=== PATIENT | female | born 1980 | race Native Hawaiian/Other Pacific Islander ===

== ENCOUNTER 2024-08-28 07:36 | Outpatient (AMB) | payer OTHER, SELFPAY ==
--- OUTSIDE RECORDS SUMMARY | 2024-02-02 05:30 | XMS_ITS ---
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 This section includes the names of all active insurance providers for the patient. Insurance Provider Type of Coverage Plan Name Start of Policy Coverage End of Policy Coverage Group Number Member ID Insurance Provider's Telephone Number Policy Spears's Name Patient's Relationship to Policy Spears ANTHEM BCBS [place] FEDERAL PREFERRED PROVIDER ORGANIZAT ION (PPO) BASIC FAMIL Y Aug 17, 2008 [id number] [phone] MAC CURRIE PATIENT ANTHEM BCBS FEP PREFERRED PROVIDER ORGANIZAT ION (PPO) FEP BASIC FAMIL Y Aug 17, 2008 [id number] [phone] MAC CURRIE PATIENT [place] PREFERRED PROVIDER ORGANIZAT ION (PPO) FEP BASIC FAM Aug 17, 2008 [id number] [phone] MAC CURRIE PATIENT AN[place]M [place] PREFERRED PROVIDER ORGANIZAT ION (PPO) FEP BASIC FAM Aug 17, 2008 [id number] [phone] MAC CURRIE PATIENT [place] PREFERRED PROVIDER ORGANIZAT ION (PPO) FEP BASIC FAM Aug 17, 2008 [id number] [phone] MAC CURRI[place] PATIENT [place] PREFERRED PROVIDER ORGANIZAT ION (PPO) FEP BASIC FAM Aug 17, 2008 [id number] [phone] MAC CURRIE PATIENT [place]BS [place] F[place] PREFERRED PROVIDER ORGANIZAT ION (PPO) BASIC FAMIL Y Aug 17, 2008 [id number] [phone] MAC CURRIE PATIENT [place] PREFERRED PROVIDER ORGANIZAT ION (PPO) BASIC FAMIL Y Aug 17, 2008 [id number] MAC CURRIE PATIENT [place] F[place] DENTAL DENTAL INSURANCE BASIC Aug 17, 2008 DENTAL [id number] MAC CURRIE PATIENT [place] FEDERAL PREFERRED PROVIDER ORGANIZAT ION (PPO) BASIC FAMIL Y Aug 17, 2008 [id number] [phone] MAC CURRIE PATIENT [place] FEP ([id number]) PRESCRIPT ION FEPRX Aug 17, 2008 [id number] [phone] MAC CURRIE PATIENT [place] FEP BCBS PRESCRIPT ION CAREM ARK FEPRX PLAN Feb 27, 2010 [id number] MAC CURRIE PATIENT [place] FEPRX PLAN PRESCRIPT ION CAREM ARK FEPRX Feb 27, 2010 [id number] MAC CURRIE PATIENT [place]-F EP BCBS PRESCRIPT ION BCBS FEP PLAN Feb 27, 2010 [id number] MAC CURRIE PATIENT CAR[place]ARK-F EP BCBS PRESCRIPT ION FEP CAREM ARK Feb 27, 2010 [id number] MAC CURRIE PATIENT [place]-F EP BCBS PRESCRIPT ION BCBS FEP Aug 17, 2008 [id number] MAC CURRIE PATIENT Selected Encounter This section includes the information on record at [place] for the Encounter. Date/Time Encounter Type Encounter Description Reason Provider Source Feb 02, 2024 09:30 AM MTMS BY PHARM EST 15 MIN CLINICAL PHARMACY ICD-10-CM E66.9 Obesity, unspecified GDULA,MIKE A IHE Encounter Template Text not used by [place] Assessments - Encounter Diagnoses This section includes the primary and secondary diagnoses documented for the Encounter. Date/Time Primary/Secondary Diagnosis Diagnosis Name Provider Source Feb 02, 2024 09:28 AM PRIMARY Obesity, unspecified GDULA,MIKE A [facility] [place] [facility] Plan of Treatment: Future Appointments (+ 6 months) and Future Tests (+/- 45 days) The Plan of Treatment section includes future care activities for the patient from all [place] [facility]. This section includes future appointments and future orders which are active, pending or scheduled. Future Appointments This section includes appointments that were scheduled to occur 6 months from the date of the Encounter, up to a maximum of 20 appointments. The data comes from all [place] treatment facilities. Appointment Date/Time Appointment Type Appointme nt Facility Name Feb 07, 2024 07:30 AM AMBULATORY - REHAB MEDICIN E [facility] [place] [facility] Feb 15, 2024 08:00 AM AMBULATORY - MEDICINE [place] [facility] [place] [facility] Feb 16, 2024 09:00 AM AMBULATORY - MEDICINE [facility] [place] [facility] Mar 06, 2024 02:30 PM AMBULATORY - MEDICINE [facility] [place] [facility] Mar 14, 2024 09:00 AM AMBULATORY - PSYCHIATRY [facility] [place] [facility] Mar 28, 2024 09:30 AM AMBULATORY - MEDICINE [place] [facility] [place] [facility] Apr 09, 2024 09:00 AM AMBULATORY - MEDICINE [facility] [place] [facility] May 03, 2024 09:30 AM AMBULATORY - MEDICINE [facility] [place] [facility] May 13, 2024 10:00 AM AMBULATORY - PSYCHIATRY [facility] [place] [facility] May 14, 2024 01:00 PM AMBULATORY - NEUROLOGY [facility] [place] [facility] June 28, 2024 08:00 AM AMBULATORY - MEDICINE [facility] [place] [facility] July 08, 2024 10:00 AM AMBULATORY - PSYCHIATRY [facility] [place] [facility] Jul 30, 2024 12:30 PM [facility] Jul 30, 2024 12:30 PM AMBULATORY - NEUROLOGY [facility] Active, Pending, and Scheduled Orders This section includes a listing of several types of active, pending, and scheduled orders, including clinic medications orders, diagnostic test orders, procedure orders and consult orders; where the start date of the order is 45 days before the date of the Encounter or 45 days after the date of theEncounter. The data comes from all [place] treatment facilities. Test Date/Time Test Type Test Details Facility Name Jan 22, 2024 03:40 PM Consult Order [facility] S[facility]EN[facility] Cons Ux Manager's Choice [facility] Social History: Smoking Status (Most current) and Tobacco Use (All prior to encounter date) This section includes the most current, and the historical, smoking and tobacco- related health factors from the [place] facility where the Encounter took place. Current Smoking Status This section includes the most current smoking, or tobacco-related health factor, from the [place] facility where the Encounter took place. Date/Time Current Smoking Status Comment [facility] Jan 19, 2024 08:00 AM VA-TOBACCO NEVER U SED CIGARETTES [facility] Tobacco Use History This section includes a history of the smoking, or tobacco-related health factors, that were collected on or before the date of the Encounter. The data comes from the [place] facility where the Encounter took place. Date/Time Smoking Status/Tobac co Use Comment Facility Jan 19, 2024 08:00 AM VA-TOBACCO NEVER USED OTHER TYPE [facility] [place] [facility] Oct 10, 2022 10:00 AM VA-TOBACCO FORMER USER [facility] [place] [facility] Oct 10, 2022 10:00 AM VA-TOBACCO QUIT < 1 YEAR [facility] [place] [facility] Sep 27, 2021 09:00 AM VA-TOBACCO USE > 15 LESS THAN 30 YEARS [facility] [place] [facility] Sep 27, 2021 09:00 AM VA-TOBACCO [facility] ADVICE [facility] Sep 27, 2021 09:00 AM VA-TOBACCO USE 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 HELPER NO [facility] Sep 27, 2021 09:00 AM VA-TOBACCO USE MED NO [facility] [place] [facility] Sep 27, 2021 09:00 AM VA-TOBACCO USE WI 30 MIN OF WAKEUP [facility] [place] [facility] Sep 27, 2021 09:00 AM VA-TOBACCO USER EVERY DAY [facility] [place] [facility] Oct 26, 2020 08:30 AM VA-TOBACCO USE > 15 LESS THAN 30 YEARS [facility] [place] [facility] Oct 26, 2020 08:30 AM VA-TOBACCO USE ADVICE [facility] [place] [facility] Oct 26, 2020 08:30 AM VA-TOBACCO USE TINNER HELPER NO [facility] [place] [facility] Oct 26, 2020 08:30 AM VA-TOBACCO USE MED NO [facility] [place] [facility] Oct 26, 2020 08:30 AM VA-TOBACCO USE WI 30 MIN OF WAKEUP [place] [facility] [place] [facility] Oct 26, 2020 08:30 AM VA-TOBACCO USER EVERY DAY [facility] [place] [facility] July 02, 2019 10:44 AM VA-TOBACCO USE > 15 LESS THAN 30 YEARS [facility] [place] [facility] July 02, 2019 10:44 AM VA-TOBACCO USE ADVICE [facility] [place] [facility] July 02, 2019 10:44 AM VA-TOBACCO USE TINNER HELPER NO [facility] [place] [facility] July 02, 2019 10:44 AM VA-TOBACCO USE MED NO [facility] [place] [facility] July 02, 2019 10:44 AM VA-TOBACCO USE WI 30 MIN OF WAKEUP [facility] [place] [facility] July 02, 2019 10:44 AM VA-TOBACCO USER EVERY DAY [facility] [place] [facility] Mar 23, 2017 08:38 AM CURRENT SMOKER [facility] [place] [facility] Mar 23, 2017 08:38 AM V1-PT DECLINES REF TO TOBACCO CESS PRGM [facility] [place] [facility] Mar 23, 2017 08:38 AM V1-PT THINKING ABOUT QUIT TOBACCO USE [facility] [place] [facility] Mar 23, 2017 08:38 AM V1-QUIT TOBACCO USE > 1 YEAR AGO [facility] [place] [facility] Aug 11, 2015 05:03 PM V1-PT DECLINES REF TO TOBACCO CESS [facility]GM [facility] Aug 11, 2015 05:03 PM V1-PT DECLINES TOBACCO CESSATION MEDS [facility] Aug 11, 2015 05:03 PM V1-PT READY TO QUIT TOBACCO USE [facility] Jun 15, 2013 09:56 AM QUIT TOBACCO USE 1-7 YEARS AGO [facility] May 08, 2013 03:19 PM QUIT TOBACCO USE 1-7 YEARS AGO [facility] May 03, 2011 02:06 PM QUIT TOBACCO USE 1-7 YEARS AGO [facility] Nov 15, 2010 11:37 AM QUIT TOBACCO USE IN PAST YEAR [facility] Jan 12, 2010 10:48 AM QUIT TOBACCO USE 1-7 YEARS AGO Quit 09/30/09 [facility] Dec 04, 2008 03:06 PM V1-PT DECLINES REF TO TOBACCO CESS PRGM [facility] Dec 04, 2008 03:06 PM V1-PT READY TO QUIT TOBACCO USE [facility]N [facility] Dec 04, 2008 03:06 PM V1-TOBACCO CESS MEDS NOT PRESCRIBED we are discussing patch vs chantix [facility] Jun 24, 2008 06:25 PM QUIT TOBACCO USE IN PAST YEAR [facility] Dec 27, 2007 09:52 AM V1-PT DECLINES REF TO TOBACCO CESS PRGM [facility] Dec 27, 2007 09:52 AM V1-PT THINKING ABOUT QUIT TOBACCO USE [facility] Dec 27, 2007 08:56 AM CURRENT SMOKER 1/2 PPD [facility] Nov 15, 2007 09:19 AM CURRENT SMOKER She smokes one half pack a day. [facility] Advance Directives: All historical and current Section Date Range: From patient's date of to the date document was created. This section includes ALL of a patient's completed or amended [place] Advance and Rescinded Directives. The entries below indicate that a directive exists for the patient, but an actual copy is not included with this document. The data comes from all [place] facilities. Date Advance Directives Provider Source Apr 07, 2021 ADVANCE DIRECTIVE MARLIN HOPKINS ELLYN YEBOAH [facility] Encounter Notes: All associated encounter notes This section contains the clinical notes associated to the Encounter. Date/Time Encounter Note(s) Provider Source Feb 02, 2024 09:00 AM PHARMACY OUTPATIEN T NOTE: LOCAL TITLE: PHARMACY CLINIC NOTE STANDARD TITLE: PHARMACY OUTPATIENT NOTE DATE OF NOTE: FEB 02, 2024@09:00 ENTRY DATE: FEB 02, 2024@09:00:16 AUTHOR: MIKE STEVENSON COSIGNER: URGENCY: STATUS: COMPLETED Patient referred by Ferdinand Tarango for consideration of weight management medications. Pt was last seen in office on 12/27/23 in which semaglutide 2.4mg once weekly was continued. Today, pt presents in office. She states she is doing well. Steadily losing weight. Denies any ADRS to the medication. She denies any issues with her appetite. She has been execising and continuing with the MOVE! program. She is happy with her sucess thus far. 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 ([facility] [id number]) L20.9 Atopic dermatitis ([facility] [id number]) E78.5 Hyperlipidemia ([facility] [id number]) Z80.3 Family history of breast cancer ([facility] [id number]) 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 ([facility] [id number]) G54.0 Thoracic outlet syndrome ([facility] [id number]) 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 ([facility] [id number]) F31.81 Bipolar disorder ([facility] 81943046) M27.8 Abnormal jaw movement ([facility] 51417719) F51.05 Insomnia ([facility] [id number]) - Insomnia, unspecified (ICD-10-CM F51.05) M54.81 Occipital neuralgia ([facility] 90587570) G43.009 Migraine without aura ([facility] 93240003) G44.221 Tension-type headache ([facility] [id number]) Z63.79 Stress at home ([facility] [id number]) V61.10 Counseling for marital and partner problems, unspecified (ICD-9-CM V61.10) 780.8 Hyperhidrosis (ICD-9-CM 780.8) 620.2 Other and unspecified ovarian cyst (ICD-9-CM 620.2) V25.9 Contraceptive management (ICD-9-CM V25.9) 789.09 Abdominal Pain of other specified site (ICD-9-CM 789.09) V16.41 Family History of Malignant Neoplasm of Ovary (ICD-9-CM V16.41) F17.210 Tobacco dependence, continuous ([facility] 154586117) M54.5 Low back pain ([facility] 617848556) F33.1 Major depression ([facility] [id number]) F43.12 Chronic post-traumatic stress disorder (MST) ([facility] [id number]) R69. Admits alcohol use ([facility] [id number]) ALLERGIES/ADRs: ARIPIPRAZOLE, CYCLOBENZAPRINE, GABAPENTIN Active Outpatient Medications (including Supplies): Issue Date Status Last Fill Active Outpatient Medications Refills Expiration 1) ASPIRIN 81MG EC TAB Qty: 120 for 90 ACTIVE Issu:09-19-22 days Sig: TAKE ONE TABLET BY MOUTH Refills: 2 Last:12-16-22 ONCE DAILY FOR COLON CANCER Expr:09-20-23 PROPHYLAXIS 2) ATORVASTATIN CALCIUM 80MG TAB Qty: 45 ACTIVE (S) Issu:09-19-22 for 90 days Sig: TAKE ONE-HALF TABLET Refills: 0 Last:06-08-23 BY MOUTH ONCE DAILY FOR CHOLESTEROL Expr:09-20-23 3) BUPROPION HCL 100MG 12HR SA TAB Qty: 30 ACTIVE Issu:07-19-22 for 30 days Sig: TAKE ONE TABLET BY Refills: 0 Last:09-07-22 MOUTH EVERY MORNING AFTER BREAKFAST Expr:07-20-23 FOR MOOD/SMOKING CESSATION 4) BUSPIRONE HCL 15MG TAB Qty: 60 for 30 ACTIVE Issu:04-07-23 days Sig: TAKE ONE TABLET BY MOUTH Refills: 1 Last:05-04-23 TWICE DAILY FOR ANXIETY Expr:04-07-24 5) CALCIUM 200MG (CA CITRATE-950MG) TAB ACTIVE Issu:09-19-22 Qty: 400 for 90 days Sig: TAKE TWO Refills: 3 Last:11-23-22 TABLETS BY MOUTH TWICE DAILY Expr:09-20-23 6) CALCIUM 500MG/VITAMIN D 200 UNT TAB ACTIVE Issu:01-20-23 Qty: 60 for 90 days Sig: TAKE 1 Refills: 2 Last:04-10-23 TABLET BY MOUTH ONCE DAILY Expr:01-21-24 7) CHOLECALCIF 25MCG (D3-1,000UNIT) TAB ACTIVE Issu:09-19-22 Qty: 90 for 90 days Sig: TAKE ONE Refills: 3 Last:09-19-22 TABLET BY MOUTH ONCE DAILY FOR VITAMIN Expr:09-20-23 SUPPLEMENTATION 8) COLON ELECTROLYTE LAVAGE PWD FOR SOLN ACTIVE Issu:04-18-23 Qty: 1 for 1 days Sig: TAKE CONTENTS Refills: 0 Last:04-25-23 OF BOTTLE BY MOUTH ONCE DISSOLVE Expr:05-18-23 CONTENTS BEFORE DRINKING. START AT 5PM THE NIGHT BEFORE THE PROCEDURE. TAKE HALF THE PREP, TAKE THE OTHER HALF 6 HOUR BEFORE THE PROCEDURE 9) OMEPRAZOLE 20MG EC CAP Qty: 90 for 90 ACTIVE Issu:05-06-23 days Sig: TAKE ONE CAPSULE BY MOUTH Refills: 3 Last:05-08-23 EVERY MORNING 30 MINUTES BEFORE Expr:05-06-24 BREAKFAST FOR GASTROESOPHAGEAL REFLUX DISEASE 10) OXYBUTYNIN CHLORIDE 5MG TAB Qty: 90 for ACTIVE Issu:05-26-22 90 days Sig: TAKE ONE-HALF TABLET BY Refills: 0 Last:05-04-23 MOUTH TWICE DAILY FOR BLADDER Expr:05-27-23 11) TRIAMCINOLONE ACETONIDE 0.5% CREAM Qty: ACTIVE Issu:07-15-22 30 for 30 days Sig: APPLY A SMALL Refills: 2 Last:12-18-22 AMOUNT TOPICALLY TWICE DAILY NEEDED Expr:07-16-23 FOR ATOPIC DERMATITIS TO HANDS 12) SEMAGLUTIDE 1 MG SUBCUT ONCE WEEKLY Start Date Active Non-VA Medications Refills Expiration 1) Non-VA [id number] OME ACTIVE 65MG CAP Si CAPSULES BY MOUTH NEEDED 2) Non-VA CALCIUM 500MG (CA CARB-1.25GM) ACTIVE TAB SiMG BY MOUTH TWICE DAILY 13 Total Medications PERTINENT LABS: SERUM Jan 20 Aug 11 Reference 2022 2022 10:21 13:37 Units Ranges -- CHOL 144 231 H mg/dL <7 - 199 TRIG 247 H 622 H mg/dL 0 - 150 HDL 42 38 L mg/dL 40 - 60 LDL-d 118 mg/dL <10 - 120 LDL 53 Reflex to dLDL mg/dL0 - 129 CHO/HDL 3.4 6.1 Comments: e l SERUM Jan 20 Jan 20 Reference 2022 2022 10:21 10:21 Units Ranges -- GLUCOSE 73 mg/dL 65 - 100 BUN 12 mg/dL 7 - 25 CREATININE 0.87 mg/dL .5 - 1.4 eGFR(IDMS) Ref: >=60 CREAT mg/dL .5 - 1.5 eGFR See Eval Ref: See Eval Sodium 142 mmol/L 135 - 145 K+/Pot 4.4 mmol/L 3.5 - 5 CL 106 mmol/L 100 - 110 CO2 27 mEq/L 20 - 30 CA mg/dL 8.5 - 10.2 UricAci mg/dL 2.6 - 6 NH3/Amm PO4 mg/dL 2.5 - 5 T. PROT 7.6 g/dL 6 - 8.3 ALBUMIN 4.3 g/dL 3.5 - 5 T BILI 0.7 mg/dL .2 - 1.2 D. BILI mg/dL 0 - .5 AST 21 U/L 5 - 34 ALT 29 U/L <6 - 55 GGT U/L 8 - 35 ALK CHARLIE 71 U/L 40 - 150 AMYLASE U/L 25 - 125 MAG mg/dL 1.6 - 2.6 ACETONE Ref: Neg T3 Total 121.34 ng/dL 35 - 193 == Assessment: Pt is tolerating medication w/o significant ADRS and has reach goal of 5% weightloss. Plan: Continue current Counseled on ways to increase exercise and add to daily lifestyle. Pt congratulated on success thus far and encouraged to continue. Medication Management: Continue: Semaglutide 2.4 mg once weekly - Counseled on spreading nutrtion throughout the day and increasing protein - Recommended increases fruits/veggies and protein - Pt to weight herself at home. - Pt to contact [facility] with ADRS EDUCATION -A shared decision-making approach was used in the development of this plan, involving the , clinician, and any caregivers present. The was provided the opportunity express questions or concerns, and the plan was adjusted as needed to address these concerns. -Reviewed with any new medications, changes to the medication list, education, and plan from today's visit. Patient (and/or caregiver) verbalized understanding of the plan, including possible known risks and benefits, and had no additional questions. Time spent: 15 mins RTC: 05/04/23 @0930 FTF PBM PharmD Pharmacotherapy Rem V12: PHARMACIST INTERVENTIONS: OBESITY/WEIGHT MANAGEMENT Medication monitoring, no dosage change required, continue to monitor and assess Medication reconciliation (changes to active VA and non-VA medication lists to reconcile differences) No changes to medication lists made (medication review completed, no discrepancies identified) /raulito/ MIKE STEVENSON PHARMD,BCPS CLINICAL PHARMACY PRACTITIONER Signed: 02/02/2024 09:28 MIKE STEVENSON [facility] [place] [facility]
--- NOTE | 2024-08-28 07:51 | A.OFFVIS_ITS ---
Intake Visit Reasons: Recurent uti/ Second opinion Intake Note: New Patient presents for initial visit for recurrent uti Urology Medications: Oxybutynin Blood Thinner: aspirin PVR: 0ml's Autocutter Required: No Accompanied by: Self / Same As Patient Allergies aripiprazole Allergy (Verified 08/28/24 08:44) Unknown cyclobenzaprine Allergy (Verified 08/28/24 08:44) Unknown gabapentin Allergy (Verified 08/28/24 08:44) Unknown Medication List - Last Reconciled 08/28/24 by MARINA Valdez- aspirin 81 mg PO DAILY eszopiclone 1 mg PO BEDTIME hydroxyzine HCl 25 mg PO BEDTIME oxybutynin chloride 5 mg PO DAILY semaglutide (weight loss) (Wegovy) mg subcut topiramate 100 mg PO DAILY ubrogepant (Ubrelvy) mg PO PRN HPI Comments Details: Monisha is a very pleasant 44-year-old female patient of Dr. Stewart. She has a past medical history of PTSD, coagulation defects, occipital neuralgia, obesity, nicotine dependence, migraines, major depression, insomnia, hyperlipidemia, family history of malignant neoplasm of breast, chronic tension headaches, bipolar 2 disorder, atopic dermatitis, and low-back pain. She presents to the office today as a 2nd opinion for ongoing lower urinary tract symptoms she has been experiencing. In discussion with the patient today she discusses a longstanding history of urinary issues from [id number]. However feels symptoms improved and then shortly after her hysterectomy in 2021 she started experiencing lower urinary tract symptoms again. She discusses following up with [facility] and being prescribed trospium and low-dose Macrobid however has not found this helpful. She reports lower urinary tract symptoms of urinary urgency, urinary frequency, and dysuria. She also reports episodes of mixed urinary incontinence. She discusses being on oxybutynin for her hot flashes. She is adamant that her news copy editor and breast specialist does not want her on any form of hormone replacement as we did discussed topical estrogen to urethra 3 times per week for preventative of recurrent urinary tract infections. In office urinalysis results reviewed with the patient today. PVR 0 mL. We did discussed further treatment options of lower urinary tract symptoms patient is experiencing as well as further treatment options and risks and benefits of these treatment options. She discusses her reluctancy to taking medications. All the patient's were answered. She otherwise offers no other issues or concerns at this time. History of Present Illness The patient is a 44-year-old female presenting with urinary incontinence, overactive bladder, and recurrent urinary tract infections. The urinary issues began before her hysterectomy, which was performed in 2021, and were initially experienced during her service between 1998 and 2007. Post-hysterectomy, the symptoms re-emerged, and she was advised to consult urology. The patient reports experiencing symptoms of urinary tract infections, such as frequent urination and discomfort, but tests often return negative for infection. She has been prescribed nitrofurantoin for UTI prevention however has not been taking this medication. 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 She has been taking oxybutynin for hot flashes due to the inability to use hormone replacement therapy. Plan The plan includes considering the use of topical estrogen cream as a first-line therapy for recurrent urinary tract infections, especially given the patient's history of hysterectomy and the contraindication for systemic hormone replacement therapy. The patient is advised to hold off on taking oxybutynin and other overactive bladder medications 7 to 10 days before the urodynamic test to ensure accurate results. An ultrasound of the kidneys and bladder is also ordered to further evaluate the urinary symptoms. The patient is encouraged to discuss the potential use of topical estrogen with her news copy editor and breast specialist. Patient was informed and verbally consented to the use of an ambient scribe for clinic note documentation during this visit. Discussion Notes During the discussion, I explained the potential benefits of using topical estrogen cream for managing recurrent urinary tract infections, particularly in the context of her hysterectomy and inability to use systemic hormone replacement therapy due to antithrombin III deficiency. We discussed the urodynamic testing procedure, which will help determine potential treatment options, and the importance of holding off on certain medications prior to the test. 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 Family history of malignant neoplasm of breast Counseling for marital and partner problems, unspecified Contraceptive management Chronic tension type headache Brachial plexus disorders Bipolar II disorder Atopic dermatitis Admits to alcohol use Abdominal pain Review of Systems Const All systems reviewed & are unremarkable except as noted in HPI and below Physical Exam Const General: cooperative, healthy appearing, comfortable, no acute distress, well developed, alert and awake Orientation/consciousness: patient oriented x3 Limitations: no limitations HEENT Head: Yes normal to inspection, Yes normocephalic and Yes atraumatic Ears: hearing grossly normal bilaterally Eyes General: appearance normal, both eyes and all related structures Neck Neck: Yes normal visual inspection and Yes trachea midline Chest Chest palpation & inspection: normal inspection of the chest Resp Effort & Inspection: normal respiratory effort and able to speak in complete sentences Cardio Rate: regular rate GI Inspection: Yes normal to inspection General: Yes no CVA tenderness Back/Spine/Pelvis Back: no CVA tenderness Skin General skin exam: no rashes or lesions noted Neuro General: patient oriented x3 Extrem General: Yes normal to inspection Psych Appearance: grossly normal and well kempt Mental Status: mental status grossly normal Speech and movement: Normal speech and movement present and Clear speech present Affect: normal affect Attitude: cooperative Thought process: Normal thought process present Thought content: Normal thought content present Insight: Fair insight present (Psych) Judgement: Fair judgement present (Psych) Office Procedures Post Void Residual Post Residual Void Post Void Residual (PVR): 0 [id number] Void Residual by ultrasound Results AMB Urinalysis, Automated UA Leukoctes 0 Otoniel/uL Last Edit by PEDRO PABLO Lu on 08/28/24 08:17 UA Nitrite Last Edit by PEDRO PABLO Lu on 08/28/24 08:17 UA Urobilinogen 0.2 mg/dL Last Edit by PEDRO PALBO Lu on 08/28/24 08:1 7 UA Protein 0 mg/dL Last Edit by Aiden Espinal [facility] on 08/28/24 08:17 UA pH 6.0 Last Edit by Aiden Espinal, [facility] on 08/28/24 08:17 UA Blood 0 Romeo/uL Last Edit by Aiden Espinal, [facility] on 08/28/24 08:17 UA Specific [place] 1.005 Last Edit by Aiden Espinal [facility] on 08/28/24 08: 17 UA Ketone Last Edit by Aiden Espinal, [facility] on 08/28/24 08:17 UA Bilirubin 0 mg/dL Last Edit by Aiden Espinal, [facility] on 08/28/24 08:17 UA Glucose 0 mg/dL Last Edit by Aiden Espinal [facility] on 08/28/24 08:17 Results Reviewed Results Reviewed: Laboratory Last Values Urine pH (Auto) 6.0 08/28/24 07:53 Specific [place] (Auto) 1.005 08/28/24 07:53 Urine Protein (Auto) 0 mg/dL 08/28/24 07:53 Glucose (UA)(Auto) 0 mg/dL 08/28/24 07:53 Urine Blood (Auto) 0 Romeo/uL 08/28/24 07:53 Urine Bilirubin (Auto) 0 mg/dL 08/28/24 07:53 Urine Urobilinogen (Auto) 0.2 mg/dL 08/28/24 07:53 Leukocyte Esterase (Auto) 0 Otoniel/uL 08/28/24 07:53 Assessment & Plan Assessment & Plan (1) Lower urinary tract symptoms: Code(s): R39.9 - Unspecified symptoms and signs involving the genitourinary system Category: Medical (2) Urinary urgency: Code(s): R39.15 - Urgency of urination Category: Medical (3) Urinary frequency: Code(s): R35.0 - Frequency of micturition Category: Medical (4) Dysuria: Code(s): R30.0 - Dysuria Category: Medical Plan In office urinalysis results with the patient today; as noted above. PVR 0 mL. We did discussed at length potential causes of lower urinary tract symptoms as well as further treatment options and risks and benefits of these treatment options. We discussed Estrace cream; she will discussed with her compound mixer as well as breast surgeon/provider We discussed bladder triggers and irritants. All questions were answered. Will obtain retroperitoneal ultrasound for further assessment evaluation. Follow-up next available in office urodynamics for further assessment evaluation. Follow-up per doctor's orders; or sooner with any issues, concerns, and or questions. Orders: Orders US retroperitoneal comp Today R30.0 - Dysuria, R35.0 - Frequency of micturition, R39.15 - Urgency of urination, R39.9 - Unspecified symptoms and signs involving the genitourinary system AMB Urinalysis Automated Today Z13.9 - Encounter for screening, unspecified AMB Post Void Residual by ultrasound Today N39.0 - Urinary tract infection, site not specified Patient Instructions: The patient had an opportunity to ask questions regarding the treatment plan. All questions were answered. Physical exam, labs, and imaging were discussed and reviewed in detail. As well as risks, benefits, and discussion of treatment choices. No major barriers to understanding were identified. The patient expressed understanding and agreement with the above treatment plan. The patient was made aware they should contact our office by phone for worsening of their current condition, the appearance of new symptoms, or with any questions or concerns. Compliance is encouraged with any medications and follow up testing that is ordered. It is a privilege to be allowed the opportunity to participate in? your urological care.? Again, if you have any questions or concerns If you have any questions or concerns please do not hesitate to contact me. The office is [phone]. This note is constructed using voice recognition software. While every effort has been made to ensure accuracy touch up painter errors may have been included. Yours sincerely, MARINA Valdez- Coding Level of Care Code New Pt Level 3 (89615) Diagnoses Lower urinary tract symptoms R39.9 Urinary urgency R39.15 Urinary frequency R35.0 Dysuria R30.0 CPT Codes Post Residual Void - PVR CPT Code: 62179-Sltj Void Residual by ultrasound ([id number])
== END 2024-08-28 08:43 | disposition home or self-care (01) ==
LOC: HO.HUSH 07:36
PROVIDERS: PCP Nurse Practitioner Family; Visit Provider Nurse Practitioner Family
DX: R39.9 Unspecified symptoms and signs involving the genitourinary system (principal); R39.15 Urgency of urination; R35.0 Frequency of micturition; R30.0 Dysuria; Z13.9 Encounter for screening, unspecified
CPT/HCPCS: 99203

== ENCOUNTER → 2024-08-28 07:36 | Outpatient (BNVA) | payer OTHER, SELFPAY | PROVIDERS: PCP Nurse Practitioner Family; Visit Provider Nurse Practitioner Family | DX: R39.15 Urgency of urination (principal); R35.0 Frequency of micturition; R39.9 Unspecified symptoms and signs involving the genitourinary system; R30.0 Dysuria | CPT/HCPCS: 51798; 81003; 99202 ==

== ENCOUNTER 2024-11-29 07:31 | Outpatient (REF) | payer OTHER, SELFPAY ==
--- NOTE | ~2024-11-29 | US_ITS ---
EXAMINATION: US RETROPERITONEUM HISTORY: R39.9 - urinary urgency, dysuria TECHNIQUE: Real-time grayscale ultrasound imaging of the kidneys was performed and images were reviewed. COMPARISON: There are no prior studies available for comparison. FINDINGS: Right kidney: The right kidney measures 10.6 x 4.5 x 5.8 cm. Renal parenchymal echotexture and thickness are normal. There are no masses. There is slight fullness of the renal pelvis. There is no hydronephrosis or renal calculi. Left Kidney: The left kidney measures 10.9 x 5.8 x 4.7 cm. Renal parenchymal echotexture and thickness are normal. There are no masses. There is no hydronephrosis or renal calculi. The urinary bladder is unremarkable. Bilateral ureteral jets are identified. Before voiding, the urinary bladder measured 10.5 x 7.4 x 9.5 cm, for an estimated volume of 386 mL. After voiding, the urinary bladder measured 6.5 x 4.5 x 7.0 cm, for an estimated volume of 107 mL. US/US retroperitoneal comp IMPRESSION: 1. Slight fullness of the right renal pelvis, of doubtful clinical significance. Otherwise unremarkable retroperitoneal ultrasound. 2. Post void bladder residual of 107 mL Electronically signed by: Santiago Corea MD 11/29/2024 08:11 AM EDT
--- OUTSIDE RECORDS SUMMARY | 2024-11-29 07:34 | XMS_ITS | Encounter Summary ---
Author Organization [facility] Address [address] [place] [address] Phone Care Team Providers Care Senior Architectural Designer Name Role Phone Sury Donovan MD Primary Care Provider +- [phone] Nicanor Barnett MD Unavailable Arsenio Meyer MD, PhD Unavailable [phone]- [phone] Vesna Stewart NP Primary Care Provider [phone] Reason for Referral * MRI/CAT Scan - Closed Specialty Diagnoses / Procedures Referred By Zion t Referred To Contact Radiology Diagnoses Right shoulder pain, unspecified chronicity Chest pain, unspecified type Procedures MRI Shoulder (Right) Sury Donovan MD [address] [place] [address] Phone: tel: fax: Referral ID Status Reason Start Date Expiration Date Visits Re quested Visits Authorized [id number] Closed 05/06/2020 07/05/2020 1 1 Encounter Details Date Type Department Care Team (Latest Contact Info) Description 05/07/2020 Transcribe Orders Virtual Department [address] [place] [address] Sury Donovan MD [address] [place] [address] Right shoulder pain, unspecified chronicity (Primary Dx); Chest pain, unspecified type Social History Tobacco Use Types Packs/Day Years Used Date Smoking Tobacco: Every Day Cigarettes 0.5 9.3 Started: 08/16/2015 Smokeless Tobacco: Never Alcohol Use Standard Drinks/Week Comments Not Currently 0 (1 standard drink = 0.6 oz pur e alcohol) social Comments No Sex and Gender Information Value Date Recorded Sex Assigned at Female 08/15/2018 12:46 PM EDT Legal Sex Female 9:21 PM EDT Gender Identity Female 08/15/2018 12:46 PM EDT Sexual Orientation Straight 08/15/2018 12 :46 PM EDT documented as of this encounter Plan of Treatment Not on file documented as of this encounter Results * MRI SHOULDER WITHOUT CONTRAST (RIGHT) (05/24/2020 11:33 AM EDT) Anatomical Region Laterality Modality Shoulder Right Magnetic Resonan ce 05/24/2020 1:32 PM EDT Impressions 05/24/2020 1:39 PM EDT Probable mild supraspinatous tendinopathy without evidence of rotator cuff or gross labral tear. No other specific etiology of shoulder pain apparent. POS - [id number] Narrative 05/24/2020 1:39 PM EDT TECHNIQUE: Exam performed on a 1.5 Aga high-field MRI scanner. Axial T1 and proton density with fat suppression, oblique coronal proton density with fat suppression and T2 with fat suppression, oblique sagittal T1 and T2 with fat suppression sequences were obtained. FINDINGS: No prior comparison studies are available. There is mild increased signal in the distal supraspinatous tendon but without discrete tear or expansion identified. Subscapularis, teres minor, and infraspinatus tendons appear to be intact. Biceps tendon is unremarkable in appearance. No joint effusion or large labral tear identified. Acromion is slightly downsloping with minimal subacromial spurring present but no evidence of gross mass-effect upon the supraspinatous. There are mild degenerative changes in the acromioclavicular compartment. No significant abnormality of glenohumeral marrow signal noted. No soft tissue mass apparent. No discrete axillary lesion identified. Procedure Note Roderick Lawson MD - 05/24/2020 TECHNIQUE: Exam performed on a 1.5 Aga high-field MRI scanner. Axial T1and proton density with fat suppression, oblique coronal proton densitywith fat suppression and T2 with fat suppression, oblique sagittal T1 andT2 with fat suppression sequences were obtained. FINDINGS: No prior comparison studies are available. There is mild increased signalin the distal supraspinatous tendon but without discrete tear or expansionidentified. Subscapularis, teres minor, and infraspinatus tendons appearto be intact. Biceps tendon is unremarkable in appearance. No jointeffusion or large labral tear identified. Acromion is slightly downsloping with minimal subacromial spurring presentbut no evidence of gross mass-effect upon the supraspinatous. There aremild degenerative changes in the acromioclavicular compartment. Nosignificant abnormality of glenohumeral marrow signal noted. No softtissue mass apparent. No discrete axillary lesion identified. IMPRESSION: Probable mild supraspinatous tendinopathy without evidence of rotator cuffor gross labral tear. No other specific etiology of shoulder painapparent. POS - [id number] Sury Donovan MD IMG MR EXTREMITY Final Res ult documented in this encounter Visit Diagnoses Diagnosis Right shoulder pain, unspecified chronicity- Primary Chest pain, unspecified type Right shoulder pain, unspecified chronicity Chest pain, unspecified type documented in this encounter Care Teams Senior Architectural Designer Relationship Specialty Start Date End Date Sury Donovan MD [address] [place] [address] PCP - General Family Medicine 09/11/18 09/09/24 Vesna Stewart NP [address] [place] [address] PCP - General Nurse Practitioner 09/10/24 Nicanor Barnett MD [address] [place] [address] [email or web address] Primary Oncologist Hematology and Oncology 04/13/2004/06/21 Arsenio Meyer MD, PhD [address] [address] [email or web address] [email or web address] Provider Hematology 04/07/21 documented as of this encounter Additional Source Comments The information contained in this document represents components of the legal health record. It is not the complete legal health record.[facility]
--- OUTSIDE RECORDS SUMMARY | 2024-11-29 07:35 | XMS_ITS | Encounter Summary ---
Author Organization [facility] Address [address] [place] [address] [place] [address] Phone Care Team Providers Care Sucker Machine Operator Name Role Phone Sury Donovan MD Primary Care Provider [phone]- [phone] Nicanor Barnett MD Unavailable Arsenio Meyer MD, PhD Unavailable [phone]- [phone] Vesna Stewart NP Primary Care Provider [phone] -[phone] Encounter Details Date Type Department Care Team (Late st Contact Info) Description 05/07/2020 Procedure Pass [address] [address] Social History Tobacco Use Types Packs/Day Years [...] on file documented as of this encounter Visit Diagnoses Not on filedocumented in this encounter Care Teams Sucker Machine Operator Relationship Specialty Start Date End Date Sury Donovan MD [address] [place] [id number] PCP - General Family Medicine 09/11/18 09/09/24 Vesna Stewart NP [address] [place] [address] PCP - General Nurse Practitioner 09/10/24 Nicanor Barnett MD [address] [place] [address] [email or web address] Primary Oncologist Hematology and Oncology 04/13/2004/06/21 Arsenio Meyer MD, PhD [address] [address] [email or web address] Consulting Provider Hematology 04/07/21 documented as of this encounter Additional Source Comments The information contained in this document represents components of the legal health record. It is not the complete legal health record.[facility]
--- OUTSIDE RECORDS SUMMARY | 2024-11-29 07:35 | XMS_ITS | Encounter Summary ---
Author Organization [facility] Address [address] [place] [address] Phone Care Team Providers Care Process Mechanic Name Role Phone Sury Donovan MD Primary Care Provider +- [phone] Nicanor Barnett MD Unavailable Arsenio Meyer MD, PhD Unavailable [phone] Vesna Stewart NP Primary Care Provider [phone] [phone] Reason for Referral * MRI/CAT Scan - Closed Specialty Diagnoses / Procedures Referred By Contac t Referred To Contact Radiology Diagnoses Radiculopathy, lumbar region Procedures MRI Lumbar Spine Willem Kaba MD [address] [place] [address] Phone: tel: fax: Referral ID Status Reason Start Date Expiration Date Visits Re quested Visits Authorized [id number] Closed 10/17/2018 02/11/2019 1 1 Encounter Details Date Type Department Care Team (Latest Contact Info) Description 12/13/2018 Transcribe Orders Virtual Department [address] [place] [address] Willem Kaba MD [address] [place] [id number] Radiculopathy, lumbar region (Primary Dx) Social History Tobacco Use Types Packs/Day Years [...] as of this encounter Results * MRI LUMBAR SPINE (BONE) WITHOUT CONTRAST (01/01/2019 8:57 AM EST) Anatomical Region Laterality Modality L-spine Magnetic Resonan ce 01/01/2019 9:10 AM EST Addenda Addendum by Jelani Larson MD on 01/04/2019 10:37 AM EST The patient's 01/27/2015 MRI from [facility] is now available for direct comparison. Allowing for differences in slice selection there is no definite change. For clarity, the disc protrusion at L5-S1 is separate from the left central annular tear. The protrusion may affect the descending right S1 nerve root. There is no significant change compared to the previous study. Impressions 01/01/2019 9:53 AM EST 1. Mild, bilateral L4 neural foraminal narrowing. 2. Shallow disc protrusion and left central annular tear at L5-S1. This may affect the descending right S1 nerve root. There is mild left L5 neural foraminal narrowing. 3. Endplate marrow edema at L4-5. This may be associated with pain. Images from the prior study are not available for direct comparison. The descriptions sound similar. POS - [facility]-RW Narrative 01/01/2019 9:53 AM EST HISTORY: Lumbar radiculopathy. Increased weakness of flexion across left patella. TECHNIQUE: Exam performed on a 1.5 Aga high-field MRI scanner. Sagittal T1, T2 and STIR, axial T1 and T2 sequences were obtained. COMPARISON: 01/27/2015 MRI report from [facility] and imaging [place]. Images are not available for direct comparison. FINDINGS: Vertebral body morphology and alignment are within normal limits. There is a fat-containing lesion along the posterior aspect of L3. This likely represents a hemangioma. There is endplate marrow edema at L4-5. L1-2: There is no significant spinal canal or neural foraminal stenosis. L2-3: There is no significant spinal canal or neural foraminal stenosis. L3-4: There is no significant spinal canal or neural foraminal stenosis. L4-5: There is disc space narrowing and mild spurring. There is thickening of the ligamentum flavum. There is mild bulging of the intervertebral disc. This indents the ventral margin of the thecal sac. There is mild narrowing of the L4 neural foramina bilaterally. This appears to be inferior to the nerve roots and may not correspond with the patient's symptoms. L5-S1: There is disc space narrowing and mild disc desiccation. There is a shallow disc protrusion (series 6 image 25) and a small annular tear (sagittal series 3 image 6). The protrusion that mildly displaces the descending right S1 nerve root. The right L5 neural foramen is not significantly narrowed. There is mild narrowing of left L5 neural foramen. Imaged portions of the aorta, iliac vessels and kidneys are unremarkable. Procedure Note Jelani Larson MD - 01/01/2019 HISTORY: Lumbar radiculopathy. Increased weakness of flexion across leftpatella. TECHNIQUE: Exam performed on a 1.5 Aga high-field MRI scanner. SagittalT1, T2 and STIR, axial T1 and T2 sequences were obtained. COMPARISON: 01/27/2015 MRI report from [facility] and imaging [place].Images are not available for direct comparison. FINDINGS: Vertebral body morphology and alignment are within normal limits. There morgan fat-containing lesion along the posterior aspect of L3. This likelyrepresents a hemangioma. There is endplate marrow edema at L4-5. L1-2: There is no significant spinal canal or neural foraminal stenosis. L2-3: There is no significant spinal canal or neural foraminal stenosis. L3-4: There is no significant spinal canal or neural foraminal stenosis. L4-5: There is disc space narrowing and mild spurring. There is thickeningof the ligamentum flavum. There is mild bulging of the intervertebraldisc. This indents the ventral margin of the thecal sac. There is mildnarrowing of the L4 neural foramina bilaterally. This appears to beinferior to the nerve roots and may not correspond with the patient'ssymptoms. L5-S1: There is disc space narrowing and mild disc desiccation. There is ashallow disc protrusion (series 6 image 25) and a small annular tear(sagittal series 3 image 6). The protrusion that mildly displaces thedescending right S1 nerve root. The right L5 neural foramen is notsignificantly narrowed. There is mild narrowing of left L5 neuralforamen. Imaged portions of the aorta, iliac vessels and kidneys areunremarkable. IMPRESSION: 1. Mild, bilateral L4 neural foraminal narrowing. 2. Shallow disc protrusion and left central annular tear at L5-S1. Thismay affect the descending right S1 nerve root. There is mild left I2prjsfp foraminal narrowing. 3. Endplate marrow edema at L4-5. This may be associated with pain. Images from the prior study are not available for direct comparison. Thedescriptions sound similar. POS - [facility]-RW Willem Kaba MD IMG MR XSPECIALTY Edited Resu lt - Final documented in this encounter Visit Diagnoses Diagnosis Radiculopathy, lumbar region- Primary Thoracic or lumbosacral neuritis or radiculitis, unspecified Radiculopathy, lumbar region Thoracic or lumbosacral neuritis or radiculitis, unspecified documented in this encounter Care Teams Process Mechanic Relationship Specialty Start Date End Date Sury Donovan MD [address] [place] [address] PCP - General Family Medicine 09/11/18 09/09/24 Vesna Stewart NP [address] [place] [address] PCP - General Nurse Practitioner 09/10/24 Nicanor Barnett MD [address] [place] [address] [email or web address] Primary Oncologist Hematology and Oncology 04/13/2004/06/21 Arsenio Meyer MD, PhD [address] [place] [address] [email or web address] [email or web address] Provider Hematology 04/07/21 documented as of this encounter Additional Source Comments The information contained in this document represents components of the legal health record. It is not the complete legal health record.[facility]
--- OUTSIDE RECORDS SUMMARY | 2024-11-29 07:35 | XMS_ITS | Encounter Summary ---
Author Organization [facility] Address [address] [place] [address] Phone Care Team Providers Care Exhibitor Sales Name Role Phone Sury Donovan MD Primary Care Provider +- [phone] Nicanor Barnett MD Unavailable Arsenio Meyer MD, PhD Unavailable [phone] Vesna Stewart NP Primary Care Provider [phone] Encounter Details Date Type Department Care Team (Late st Contact Info) Description 12/13/2018 Procedure Pass [address] [address] Social History Tobacco Use Types Packs/Day Years [...] on filedocumented in this encounter Care Teams Exhibitor Sales Relationship Specialty Start Date End Date Sury Donovan MD [address] [place] [address] PCP - General Family Medicine 09/11/18 09/09/24 Vesna Stewart NP [address] [place] [address] PCP - General Nurse Practitioner 09/10/24 Nicanor Barnett MD [address] [place] [address] [email or web address] Primary Oncologist Hematology and Oncology 04/13/2004/06/21 Arsenio Meyer MD, PhD [address] [address] [email or web address] Consulting Provider Hematology 04/07/21 documented as of this encounter Additional Source Comments The information contained in this document represents components of the legal health record. It is not the complete legal health record.[facility]
--- OUTSIDE RECORDS SUMMARY | 2024-11-29 07:35 | XMS_ITS | Encounter Summary ---
Author Organization [facility] Address [address] [place] [address] [place] [address] Phone Care Team Providers Care Stemhole Borer And Topper Name Role Phone Dominique White ADULT SCHOOL COUNSELOR Primary Care Provider [phone] Sury Donovan MD Primary Care Provider [phone] Nicanor Barnett MD Unavailable Arsenio Meyer MD, PhD Unavailable Vesna Stewart NP Primary Care Provider [phone] Encounter Details Date Type Department Care Team (Late st Contact Info) Description 09/06/2018 Procedure Pass OR Admitting Dept - [facility] Department [address] [place] [address] Social History Tobacco Use Types Packs/Day Years [...] on filedocumented in this encounter Care Teams Stemhole Borer And Topper Relationship Specialty Start Date End Date Dominique White ADULT SCHOOL COUNSELOR [address] [place] [address] PCP - General 03/02/17 09/10/18 Sury Donovan MD [address] [place] [address] PCP - General Family Medicine 09/11/18 09/09/24 Vesna Stewart NP [address] [place] [address] PCP - General Nurse Practitioner 09/10/24 Nicanor Barnett MD [address] [place] [address] [email or web address] Primary Oncologist Hematology and Oncology 04/13/2004/06/21 Arsenio Meyer MD, PhD [address] [place] [address] [email or web address] Consulting Provider Hematology 04/07/21 documented as of this encounter Additional Source Comments The information contained in this document represents components of the legal health record. It is not the complete legal health record.[facility]
--- OUTSIDE RECORDS SUMMARY | 2024-11-29 07:35 | XMS_ITS | Encounter Summary ---
Author Organization [facility] Address [address] [place] [address] [place] [address] Phone Care Team Providers Care Job Developer Name Role Phone Sury Donovan MD Primary Care Provider +- [phone] Nicanor Barnett MD Unavailable Arsenio Meyer MD, PhD Unavailable [phone] Vesna Stewart NP Primary Care Provider [phone] Reason for Referral * MRI/CAT Scan - Closed Specialty Diagnoses / Procedures Referred By Contac t Referred To Contact Procedures MRI Spine (Bone) Outside (No Interpretation) System, Provider Not In, [place] [address] Referral ID Status Reason Start Date Expiration Date Visits Re quested Visits Authorized [id number] Closed 01/02/2019 01/02/2020 1 1 Encounter Details Date Type Department Care Team (Late st Contact Info) Description 01/02/2019 Ancillary Orders [facility],Outside Imaging [address] [place], [place] [id number] System, Provider Not In, [facility] [address] [address] Social History Tobacco Use Types Packs/Day Years [...] as of this encounter Results * MRI Spine (Bone) Outside (No Interpretation) (01/27/2015 12:00 AM EST) Narrative SYSTEMGENERATED, DOCUMENTATION - 01/02/2019 11:26 AM EST This study is for PACS storage only and not for interpretation. us Provider Not In System PhD IMG OUTSIDE IMAGING W /OUT INTERPRETATION Final Result documented in this encounter Visit Diagnoses Not on filedocumented in this encounter Care Teams Job Developer Relationship Specialty Start Date End Date Sury Donovan MD [address] [place] [address] PCP - General Family Medicine 09/11/18 09/09/24 Vesna Stewart NP [address] [place] [address] PCP - General Nurse Practitioner 09/10/24 Nicanor Barnett MD [address] [place] [address] [email or web address] Primary Oncologist Hematology and Oncology 04/13/2004/06/21 Arsenio Meyer MD, PhD [address] [address] [email or web address] Consulting Provider Hematology 04/07/21 documented as of this encounter Additional Source Comments The information contained in this document represents components of the legal health record. It is not the complete legal health record.[facility]
--- OUTSIDE RECORDS SUMMARY | 2024-11-29 07:35 | XMS_ITS | Encounter Summary ---
Author Organization [facility] Address [address] [place] [address] [place] [address] Phone Care Team Providers Care Exercise Physiology Professor Name Role Phone Dominique White NP Primary Care Provider [phone] Sury Donovan MD Primary Care Provider [phone] Nicanor Barnett MD Unavailable Arsenio Meyer MD, PhD Unavailable Vesna Stewart NP Primary Care Provider [phone] Encounter Details Date Type Department Care Team (Late st Contact Info) Description 08/16/2018 Procedure Pass [facility] Cardiovascular And Interventional Radiology [address] [place] [address] Social History Tobacco Use Types Packs/Day Years Used Date Smoking Tobacco: Every Day Cigarettes 0.5 9.3 Started: 08/16/2015 Smokeless Tobacco: Never Alcohol Use Standard Drinks/Week Comments Yes 0 (1 standard drink = 0.6 oz pur e alcohol) social Comments Unknown Sex and Gender Information Value Date Recorded Sex Assigned at Female 08/15/2018 12:46 PM EDT Legal Sex Female 9:21 PM EDT Gender Identity Female 08/15/2018 12:46 PM EDT Sexual Orientation Straight 08/15/2018 12 :46 PM EDT documented as of this encounter Plan of Treatment Not on file documented as of this encounter Visit Diagnoses Not on filedocumented in this encounter Care Teams Exercise Physiology Professor Relationship Specialty Start Date End Date Dominique White NP [address] [place] [address] PCP - General 03/02/17 09/10/18 Sury Donovan MD [address] [place] [address] PCP - General Family Medicine 09/11/18 09/09/24 Vesna Stewart NP [address] [place] [address] PCP - General Nurse Practitioner 09/10/24 Nicanor Barnett MD [address] [place] [address] [email or web address] Primary Oncologist Hematology and Oncology 04/13/2004/06/21 Arsenio Meyer MD, PhD [address] [place] [address] [email or web address] Consulting Provider Hematology 04/07/21 documented as of this encounter Additional Source Comments The information contained in this document represents components of the legal health record. It is not the complete legal health record.[facility]
--- OUTSIDE RECORDS SUMMARY | 2024-11-29 07:36 | XMS_ITS | Clinical Summary ---
Author Organization [facility] Address [address] [place] [address] Phone Care Team Providers Care Lead Front Desk Agent Name Role Phone Arsenio Meyer MD, PhD Unavailable [phone] Vesna Stewart NP Primary Care Provider [phone] [phone] Allergies No known active allergies Medications lurasidone (LATUDA) 40 mg Tab Take 40 mg by mouth nightly at bedtime. Active biotin 1 mg tablet Take 1,000 mcg by mouth daily. Active docusate (COLACE) 100 mg tablet Take 100 mg by mouth 2 (two) times a day. Active acetaminophen (TYLENOL) 325 mg tablet Take 2 tablets (650 mg total) by mouth every 4 (four) hours as needed for mild pain. 09/06/2018 Active diazePAM (VALIUM) 5 MG tablet Take 1 tablet (5 mg total) by mouth every 6 (six) hours as needed for other (free text field) (muscle relaxation). 15 tablet 09/13/2021 Active Active Problems Patient Care Coordination No te Formatting of this note migh t be different from the original. Height 166.7cm no shoes taken by OC 09/11/18 Problem Noted Date Diagnosed Date Abnormal uterine bleeding 08/28/2018 Overview (08/28/2018): Would recommend reinsertion of the Mirena IUD, however, at this time she thinks she would rather have the ablation; may be less effective with anticoagulation, would not have time for SHG, so would have the hysteroscopy and hydrothermal ablation Arm DVT (deep venous thromboembolism), acute, ri ght 08/15/2018 Assessment & Plan (08/16/2018 1:28 PM EDT): Patient with recently diagnosed right upper extremity DVT on 08/10/2018 started on Xarelto and has been compliant. Now here with increased pain and swelling in right upper extremity. Patient swelling went down a little bit with the heparin. Awaiting her procedure with IR. Hopeful for discharge home after that later today. He will depend on what IR assist after the procedure. Hyperlipidemia 08/15/2018 Assessment & Plan (08/15/2018 6:26 PM EDT): Patient currently not on lipid-lowering agents at this time. -Low-cholesterol diet -follow-up with PCP as outpatient. Hx of migraine headaches 08/15/2018 Assessment & Plan (08/15/2018 6:28 PM EDT): Patient is currently asymptomatic at this time. Followed by Dr. Mcgill of neurology as an outpatient and managed with Imitrex. Currently pain-free. -As needed Imitrex. Tobacco use disorder 08/15/2018 Assessment & Plan (08/15/2018 6:31 PM EDT): Patient smokes 1/2 pack of cigarettes per day. Smoked for the last 3 years. She is counseled regarding cessation. 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 She has been anticoagulated with Xarelto. Has had increasing pain and swelling while on Xarelto. Discussed with Beth Toussaint indefinitely after discharge. Encounters Date Type Department Care Team Description 10/08/2024 8:40 AM EDT Office Visit [facility] [address] [place] [id number] Kary Randall PA-C Fractured elbow (Primary Dx); Closed displaced fracture of neck of left radius with routine healing, subsequent encounter 10/08/2024 8:30 AM EDT - 10/08/2024 11:59 PM EDT Hospital Encounter [facility] [address] [place] [address] Kary Randall PA-C Discharge Disposition: Home or Self Care 09/12/2024 Ancillary Orders [facility],Outside Imaging [address] [place] [address] Unknown, Amol, 09/12/2024 Ancillary Orders [facility],Outside Imaging [address] [place] [address] Unknown, MD Amol 09/12/2024 Ancillary Orders [facility]Outside Imaging [address] [place] [address] Unknown, MD Amol 09/12/2024 Ancillary Orders [facility],Outside Imaging [address] [place] [address] Unknown, MD Amol 09/10/2024 1:45 PM EDT Office Visit [facility] [address] [place] [address] Lee Roy PA-C Closed displaced fracture of neck of left radius, initial encounter (Primary Dx) 09/10/2024 12:15 AM EDT - 09/10/2024 11:59 PM EDT Hospital Encounter [facility],Outside Imaging [address] [place] [address] Unknown, UnknownMD Discharge Disposition: Home or Self Care 09/10/2024 12:10 AM EDT - 09/10/2024 12:14 AM EDT Hospital Encounter [facility],Outside Imaging [address] [place] [address] Unknown, MD Amol Discharge Disposition: Home or Self Care 09/10/2024 12:05 AM EDT - 09/10/2024 12:09 AM EDT Hospital Encounter [facility],Outside Imaging [address] [place] [address] Unknown, MD Amol Discharge Disposition: Home or Self Care 09/10/2024 - 09/10/2024 12:04 AM EDT Hospital Encounter [facility]Outside Imaging [address] [place] [address] Unknown, Unknown, MD Discharge Disposition: Home or Self Care from Last 3 Months Immunizations Immunization Administration Dates Next Due Anthrax 05/24/1999 DTaP, unspecified formulation 07/28/2012 HPV,quadrivalent 12/06/2006 Hepatitis A, Adult 05/01/2000 Hepatitis B Adult 12/07/2001 IPV 09/15/1998 Influenza Quadrivalent Preservative Free IM 10/28 Influenza Split (Incl. Purified Surface Antigen) 01/12/2005 Influenza, Unspecified Formulation 12/28/2013, Bengali Encephalitis SC 05/28/2001 MMR 07/13/2000 Meningococcal MPSV4 07/28/2005 Pneumococcal polysaccharide PPSV23 10/17/2019 Td (adult),2 Lf Tetanus Toxoid, PF, Adsorbed 06/1999 Typhoid, ViCPs 07/07/2006 Typhoid, parenteral 01/13/2004 Yellow Fever 02/22/2002 Family History Medical History Relation Comments Hypertension Maternal Grandmother Urinary tract infection Maternal Grandmother Hyperlipidemia Mother Urinary tract infection Mother Relation Status Comments Maternal Grandmother Mother Alive Social History Tobacco Use Types Packs/Day Years Used Date Smoking Tobacco: Every Day Cigarettes 0.5 9.3 Started: 08/16/2015 Smokeless Tobacco: Never Alcohol Use Standard Drinks/Week Comments Not Currently 0 (1 standard drink = 0.6 oz pur e alcohol) social Education Answer Date Recorded Are you interested in more education? Not on tanner e 06/24/2022 Are you concerned about learning? Not on file 06/24/2022 No 06/24/2022 No 06/24/2022 Digital Access Answer Date Recorded No 07/22/2022 No 07/22/2022 Reliable internet access at home? Not on file 07/22/2022 Device with a working camera? Not on file Comments No Sex and Gender Information Value Date Recorded Sex Assigned at Female 08/15/2018 12:46 PM EDT Legal Sex Female 9:21 PM EDT Gender Identity Female 08/15/2018 12:46 PM EDT Sexual Orientation Straight 08/15/2018 12 :46 PM EDT Last Filed Vital Signs Vital Sign Reading Time Taken Comments Blood Pressure 111/76 09/13/2021 4:00 PM EDT Pulse 71 09/13/2021 4:45 PM EDT Temperature 36.6 C (97.9 F) 09/13/2021 2:02 PM EDT Respiratory Rate 14 09/13/2021 5:00 PM EDT Oxygen Saturation 100% 09/13/2021 4:45 PM EDT Inhaled Oxygen Concentration - - Weight 83 kg (183 lb) 09/13/2021 2:02 PM EDT Height 167.6 cm (5' 6 ) 05/20/2020 9:05 AM EDT Body Mass Index 29.54 05/20/2020 9:05 AM EDT Plan of Treatment Health Maintenance Due Date Last Done Comments DEPRESSION SCREENING 1992 SMOKING Hx and SMOKELESS TOBACCO SCREENING 1993 HEPATITIS C SCREENING 1998 HIV ONE-TIME SCREENING (18-65 YEARS) 1998 PAP SMEAR 05/26/2019 05/25/2016, 05/18/2016 MAMMOGRAM 2020 INFLUENZA VACCINE (#1) 2024 , 10/28/2022, 01/11/2022, Additional history exists COVID-19 VACCINE ( season) 2024 11/12/2020, 10/23/2020 Adult Td,Tdap Booster 07/15/2032 07/15/2022, 000 HEPATITIS A VACCINES Aged Out 05/01/2000 No long er eligible based on patient's age to complete this topic MENINGOCOCCAL VACCINES (ACWY) Aged Out 07/28/2005 No longer eligible based on patient's age to complete this topic PNEUMOCOCCAL VACCINES (0-49 years) Completed 07/15/2022, 10/17/2019 HIB VACCINES Aged Out No longer eligi ble based on patient's age to complete this topic MENINGOCOCCAL VACCINES (B) Aged Out N o longer eligible based on patient's age to complete this topic Medical Devices Not on file Procedures Procedure Name Priority Date/Time Associated Diagnosis Comments XR ELBOW 3 OR MORE VIEWS (LEFT) Routine 10/08/2024 8:37 AM EDT Closed displaced fracture of neck of left radius, initial encounter XR UPPER EXTREMITY OUTSIDE (NO INTERPRETATION) Routine 09/10/2024 12:15 AM EDT XR UPPER EXTREMITY OUTSIDE (NO INTERPRETATION) Routine 09/10/2024 12:10 AM EDT XR UPPER EXTREMITY OUTSIDE (NO INTERPRETATION) Routine 09/10/2024 12:05 AM EDT XR UPPER EXTREMITY OUTSIDE (NO INTERPRETATION) Routine 09/10/2024 12:00 AM EDT HM PAP SMEAR FOR RESULT ENTRY ONLY Routine 05/25/2016 from Last 3 Months or Most Recently Relevant to Health Maintenance Results * XR ELBOW 3 OR MORE VIEWS (LEFT) (10/08/2024 8:37 AM EDT) Narrative SYSTEMGENERATED, DOCUMENTATION - 10/08/2024 8:37 AM EDT This image report has been auto-finalized and has not been read by a Radiologist. Interpretation has been included in the provider encounter note for this date of service. us Kary Randall PA-C IMG XR UPPER EXTREMI TY Final Result * XR Upper Extremity Outside (No Interpretation) (09/10/2024 12:15 AM EDT) Narrative SYSTEMGENERATED, DOCUMENTATION - 09/12/2024 7:47 AM EDT This study is for PACS storage only and not for interpretation. us Unknown Unknown MD IMG OUTSIDE IMAGING W/OUT INT ERPRETATION Final Result * XR Upper Extremity Outside (No Interpretation) (09/10/2024 12:10 AM EDT) Narrative SYSTEMGENERATED, DOCUMENTATION - 09/12/2024 7:47 AM EDT This study is for PACS storage only and not for interpretation. us Unknown Unknown MD IMG OUTSIDE IMAGING W/OUT INT ERPRETATION Final Result * XR Upper Extremity Outside (No Interpretation) (09/10/2024 12:05 AM EDT) Narrative SYSTEMGENERATED, DOCUMENTATION - 09/12/2024 7:47 AM EDT This study is for PACS storage only and not for interpretation. us Unknown Unknown MD IMG OUTSIDE IMAGING W/OUT INT ERPRETATION Final Result * XR Upper Extremity Outside (No Interpretation) (09/10/2024 12:00 AM EDT) Narrative SYSTEMGENERATED, DOCUMENTATION - 09/12/2024 7:46 AM EDT This study is for PACS storage only and not for interpretation. us Unknown Unknown MD IMG OUTSIDE IMAGING W/OUT INT ERPRETATION Final Result * HM PAP SMEAR FOR RESULT ENTRY ONLY (05/25/2016) us Jason Dejesus MD HEALTH MAINTENANCE Final Result from Last 3 Months or Most Recently Relevant to Health Maintenance Insurance [facility] [place] [address] Member Subscriber Plan / Payer (Ef fective 2008-Present) Name:Monisha Laurent Relation to Subscriber:Self Name:Monisha Laurent Payer ID:[id number] (NAIC) Group ID:[id number] Type:PPO Address: [address] [place] [address] Member Subscriber Plan / Payer (Ef fective 2008-Present) Name:Monisha Laurent Relation to Subscriber:Self Name:Monisha Laurent Payer ID:[id number] (NAIC) Group ID:[id number] Type:PPO Address: [address] Member Subscriber Plan / Payer (Ef fective 2008-Present) Name:Bhupinder Laurentina Relation to Subscriber:Self Name:AnastasiiaBhupinderMonisha Payer ID:[id number] (NAIC) Group ID:[id number] Type:PPO Address: [address] Member Subscriber Plan / Payer (Ef fective 2008-Present) Name:Princeraven Monisha Relation to Subscriber:Self Name:Monisha Laurent Payer ID:[id number] (NAIC) Group ID:[id number] Type:PPO Address: [address] Member Subscriber Plan / Payer (Ef fective 2008-Present) Name:Bhupinder Laurentina Relation to Subscriber:Self Name:Bhupinder Laurentina Payer ID:[id number] (NAIC) Group ID:[id number] Type:PPO Address: [address] [place] [address] Member Subscriber Plan / Payer (Ef fective 2008-Present) Name:Monisha Laurent Relation to Subscriber:Self Name:Monisha Laurent Payer ID:[id number] (NAIC) Group ID:[id number] Type:PPO Address: [address] [place] [address] Member Subscriber Plan / Payer (Ef fective 2008-Present) Name:Monisha Laurent Relation to Subscriber:Self Name:Monisha Laurent Payer ID:[id number] (NAIC) Group ID:[id number] Type:PPO Address: [address] [place] [address] Member Subscriber Plan / Payer (Ef fective 2008-Present) Name:Monisha Laurent Relation to Subscriber:Self Name:Monisha Laurent Payer ID:[id number] (NAIC) Group ID:[id number] Type:PPO Address: [address] Advance Directives For more information, please contact: [phone] (9AM - 5PM Tonya/[facility], Monday-Monday) * Full Code (Presumed) (Latest Code Status on File) Date Activated Date Inactivated Comments 09/06/2018 9:40 AM 09/06/2018 4:20 PM * Full Code (Presumed) Date Activated Date Inactivated Comments 08/15/2018 6:31 PM 08/16/2018 8:29 PM Care Teams Lead Front Desk Agent Relationship Specialty Start Date End Date Vesna Stewart NP [address] [place] [address] PCP - General Nurse Practitioner 09/10/24 Arsenio Meyer MD, PhD [address] [place] [address] [email or web address] Consulting Provider Hematology 04/07/21 Additional Source Comments The information contained in this document represents components of the legal health record. It is not the complete legal health record.[facility]
--- OUTSIDE RECORDS SUMMARY | 2024-11-29 07:36 | XMS_ITS | Encounter Summary ---
Author Organization [facility] Address [address] [place] [address] [place] [address] Phone Care Team Providers Care Fiber Worker Name Role Phone Sury Donovan MD Primary Care Provider [phone]- [phone] Nicanor Barnett MD Unavailable Arsenio Meyer MD, PhD Unavailable Vesna Stewart NP Primary Care Provider +1 -[phone] Encounter Details Date Type Department Care Team (Late st Contact Info) Description 01/02/2019 Procedure [facility]Outside Imaging [address] [place] [address] Social History Tobacco Use Types Packs/Day Years Used Date Smoking Tobacco: Never Assessed Comments No Sex and Gender Information Value [...] on filedocumented in this encounter Care Teams Fiber Worker Relationship Specialty Start Date End Date Sury Donovan MD [address] [place] [address] PCP - General Family Medicine 09/11/18 09/09/24 Vesna Stewart NP [address] [place] [address] PCP - General Nurse Practitioner 09/10/24 Nicanor Barnett MD [address] [place] [address] [email or web address] Oncologist Hematology and Oncology 04/13/2004/06/21 Arsenio Meyer MD, PhD [address] [address] [email or web address] Consulting Provider Hematology 04/07/21 documented as of this encounter Additional Source Comments The information contained in this document represents components of the legal health record. It is not the complete legal health record.[facility]
== END 2024-11-29 07:32 | disposition home or self-care (01) ==
LOC: HO.US 07:31
PROVIDERS: PCP Nurse Practitioner Family; Visit Provider Nurse Practitioner Family
DX: R39.15 Urgency of urination (principal); R35.0 Frequency of micturition; R30.0 Dysuria; R39.9 Unspecified symptoms and signs involving the genitourinary system
CPT/HCPCS: 76770

== ENCOUNTER → 2024-11-29 07:33 | Outpatient (BNV) | payer OTHER, SELFPAY | PROVIDERS: PCP Nurse Practitioner Family; Visit Provider Radiology Diagnostic Radiology | DX: R39.9 Unspecified symptoms and signs involving the genitourinary system (principal) | CPT/HCPCS: 76770 ==

== ENCOUNTER 2024-12-13 08:10 | Outpatient (AMB) | payer OTHER, SELFPAY ==
--- NOTE | 2024-12-13 09:15 | A.OFFVIS_ITS ---
Intake Visit Reasons: UroD Allergies aripiprazole Allergy (Verified 08/28/24 08:44) Unknown cyclobenzaprine Allergy (Verified 08/28/24 08:44) Unknown gabapentin Allergy (Verified 08/28/24 08:44) Unknown HPI Comments Details: 12/13/24--History of Present Illness The patient is a 44-year-old female presenting for urodynamic testing to evaluate urinary symptoms. The patient has a history of a hysterectomy, which may have contributed to her current symptoms due to potential nerve and tissue changes post-surgery. She also mentioned having a large baby, which could have impacted pelvic floor integrity. 30 minutes spent in review of records pertaining to this visit and including [id number] discussion with the patient and documentation of this visit. Results - Urodynamic testing: Sensory urgency during bladder filling, no uninhibited detrusor contractions observed. Objective leakage with cough noted. Discussed therapy options to include urethral bulking, sling and pelvic floor physical therapy. Pamphlets provided, the patient will consider information and call back otherwise follow-up in 6 months. 08/28/24--Monisha is a very pleasant 44-year-old female patient of Dr. Stewart. She has a past medical history of PTSD, coagulation defects, occipital neuralgia, obesity, nicotine dependence, migraines, major depression, insomnia, hyperlipidemia, family history of malignant neoplasm of breast, chronic tension headaches, bipolar 2 disorder, atopic dermatitis, and low-back pain. She presents to the office today as a 2nd opinion for ongoing lower urinary tract symptoms she has been experiencing. In discussion with the patient today she discusses a longstanding history of urinary issues from 1998- 2007. However feels symptoms improved and then shortly after her ectomy son Nisha pelvic surgery catheterization of the nerves in scarring in the is like that I was here for the exit for the testing pelvic exam feel any bulge we get patient's symptoms like this in 2021 she started experiencing lower urinary tract symptoms again. She discusses following up with [place] [facility] and being prescribed trospium and low-dose Macrobid however has not found this helpful. She reports lower urinary tract symptoms of urinary urgency, urinary frequency, and dysuria. She also reports episodes of mixed urinary incontinence. She discusses being on oxybutynin for her hot flashes. She is adamant that her head strength and conditioning coach and breast specialist does not want her on any form of hormone replacement as we did discussed topical estrogen to urethra 3 times per week for preventative of recurrent urinary tract infections. In office urinalysis results reviewed with the patient today. PVR 0 mL. We did discussed further treatment options of lower urinary tract symptoms patient is experiencing as well as further treatment options and risks and benefits of these treatment options. She discusses her reluctancy to taking medications. All the patient's were answered. She otherwise offers no other issues or concerns at this time. 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 Family history of malignant neoplasm of breast Counseling for marital and partner problems, unspecified Contraceptive management Chronic tension type headache Brachial plexus disorders Bipolar II disorder Atopic dermatitis Admits to alcohol use Abdominal pain Review of Systems Const All systems reviewed & are unremarkable except as noted in HPI and below Reports no additional complaints Eyes Reports no additional complaints ENT Reports no additional complaints Card Reports no additional complaints Resp Reports no additional complaints GI Reports no additional complaints Reports as per HPI Musc Reports no additional complaints Skin/Breast Reports system reviewed and no additional complaints, except as documented Neuro Reports no additional complaints Psych Reports no additional complaints Endo Reports no additional complaints Edouard/Lymph Reports no additional complaints Aller/Immun Reports no additional complaints Office Procedures Urodynamic Studies Consent Discussed risk and benefit or proposed procedure with the patient. Information consent for procedure given to the patient. Discussed technical aspects, risks, benefits and alternatives in full. Addressed all of the patient's questions and concerns regarding the procedure. The patient demonstrated knowledge and understanding. They wish to proceed with this procedure. Preparation The patient was prepped in the usual manner. A lead refiner was present and in the room. Genitalia was prepped with betadine solution in a sterile manner. Procedure Complex Uroflow Complex uroflow performed by: Jyoti Sandoval Maximum urinary flow rate (mL/second): 28 Voiding time (seconds): 21 secs Voided volume (mL): 258ml Residual urine (mL): 30ml Cystometrogram ? Vaginal/rectal catheter type: Vaginal First sensation at (mL): 15 mL First desire at (mL): 62mL Strong desire to void occurred at (mL): 94mL Strong desire detrusor pressure (cm H2O): 2.2 Maximum Capacity (mL): 520 mL Voiding Summary Voided with max detrusor pressure of (cm H2O): 81 Maximum flow rate (mL/second): 17 mL/s Voided volume (mL): ? 316ml Once catheters removed, patient voided an additional 200ml Calculated PVR: 0mL Stress Testing Stress Test at 200 mL: Absent leak with Valsalva, Absent leak with cough Stress Test at 454 mL: Absent leak with Valsalva, Absent leak with cough Stress Test at 520 mL: Absent leak with Valsalva, Present leak with cough DO Dry: N/a DO Wet: N/a Patient with sensory urgency throughout test with no detrusor over activity noted. Prep: The patient was prepped in the usual manner. A lead refiner was present and in the room. Genitalia was prepped with betadine solution in a sterile manner. 79844-Gvxvsfmlggzvjm w/ WINCH TRUCK OPERATOR 39218-Pzsislj-Hwnnfmlamijk 53109-Smsm/Urinary Muscle Study 66921-Nzfdc-Iarrowffo Pressure Test Procedure code (CPT) selection complete Office Meds nitrofurantoin monohydrate/macrocrystals 100 mg capsule Performing Provider: Jyoti Sandoval MD [facility] [facility] Administered by: Yvonne Hayden RN on 12/13/24 09:15 Dose Route Admin Location Dispensed Lot Number Expiration Date NDC [place] 100 mg PO 1 cap Results AMB Urinalysis, Automated UA Leukoctes 0 Otoniel/uL Last Edit by Yvonne Hayden RN on 12/13/24 09:24 UA Nitrite Negative Last Edit by Yvonne Hayden RN on 12/13/24 09:24 UA Urobilinogen 0.2 mg/dL Last Edit by Yvonne Hayden RN on 12/13/24 09: 24 UA Protein 0 mg/dL Last Edit by Yvonne Hayden RN on 12/13/24 09:24 UA pH 6.0 Last Edit by Yvonne Hayden RN on 12/13/24 09:24 UA Blood 0 Romeo/uL Last Edit by Yvonne Hayden RN on 12/13/24 09:24 UA Specific [place] 1.0 Last Edit by Yvonne Hayden RN on 12/13/24 09:2 4 UA Ketone Negative Last Edit by Yvonne Hayden RN on 12/13/24 09:24 UA Bilirubin 0 mg/dL Last Edit by Yvonne Hayden RN on 12/13/24 09:24 UA Glucose 0 mg/dL Last Edit by Yvonne Hayden RN on 12/13/24 09:24 Results Reviewed Results Reviewed: Laboratory Last Values Urine pH (Auto) 6.0 12/13/24 09:23 Specific [place] (Auto) 1.0 12/13/24 09:23 Urine Protein (Auto) 0 mg/dL 12/13/24 09:23 Glucose (UA)(Auto) 0 mg/dL 12/13/24 09:23 Urine Ketones (Auto) Negative 12/13/24 09:23 Urine Blood (Auto) 0 Romeo/uL 12/13/24 09:23 Urine Nitrite (Auto) Negative 12/13/24 09:23 Urine Bilirubin (Auto) 0 mg/dL 12/13/24 09:23 Urine Urobilinogen (Auto) 0.2 mg/dL 12/13/24 09:23 Leukocyte Esterase (Auto) 0 Otoniel/uL 12/13/24 09:23 Assessment & Plan Assessment & Plan (1) Urinary urgency: Code(s): R39.15 - Urgency of urination Category: Medical (2) RAF (stress urinary incontinence, female): Code(s): N39.3 - Stress incontinence (female) (male) Category: Medical Plan Discussed therapy options to include urethral bulking, sling and pelvic floor physical therapy. Pamphlets provided, the patient will consider information and call back otherwise follow-up in 6 months. Orders: Orders AMB Urodynamics Studies Today R35.0 - Frequency of micturition, R39.15 - Urgency of urination AMB Urinalysis Automated Today Z13.9 - Encounter for screening, unspecified Patient Instructions: The patient had an opportunity to ask questions regarding treatment plan. The patient expressed understanding and agreement with the above treatment plan. The patient is aware they should contact our office by phone for worsening of their current condition or the appearance of new symptoms. Compliance is encouraged with any medications and followup testing that is ordered. It is a privilege to be allowed the opportunity to participate in the urologic care of your patient. If you have any questions or concerns regarding treatment for the above conditions please do not hesitate to contact me. The office telephone contact is [phone]. This note is constructed in part using voice recognition software. While every effort has been made to ensure accuracy furnace charging machine operator errors may have been included. Yours sincerely, Jyoti Sandoval MD Scribe Plan - Not visible on output: Patient was informed and verbally consented to the use of an ambient scribe for clinic note documentation during this visit. Coding Level of Care Code Est Pt Level 3 (75289) Diagnoses Urinary urgency R39.15 RAF (stress urinary incontinence, female) N39.3 CPT Codes Urodynamic Studies - CPT: 86731-Qogvxoxgxacgyq w/ WINCH TRUCK OPERATOR ([id number]) Urodynamic Studies - CPT: 21742-Ubgneou-Iedxwdkiarwq ([id number]) Urodynamic Studies - CPT: 04051-Gnar/Urinary Muscle Study ([id number]) Urodynamic Studies - CPT: 37842-Jcyif-Jhgxrmnmh Pressure Test ([id number])
== END 2024-12-13 09:37 | disposition home or self-care (01) ==
LOC: HO.HUSH 08:10
PROVIDERS: PCP Nurse Practitioner Family; Visit Provider Urology
DX: R39.15 Urgency of urination (principal); R35.0 Frequency of micturition; N39.3 Stress incontinence (female) (male); Z13.9 Encounter for screening, unspecified
CPT/HCPCS: 51728; 51741; 51784; 51797; 99213

== ENCOUNTER → 2024-12-13 08:10 | Outpatient (BNVA) | payer OTHER, SELFPAY | PROVIDERS: PCP Nurse Practitioner Family; Visit Provider Urology | DX: R39.15 Urgency of urination (principal); N39.3 Stress incontinence (female) (male) | CPT/HCPCS: 51728; 51741; 51784; 51797; 81003; 99212 ==